=== PATIENT | male | born 1980 | race Caucasian/White ===

== ENCOUNTER 2016-04-20 10:13 | Emergency (ER) | payer SELFPAY ==
[~2016-04-20] VITALS: Ht 177.8 cm; Wt 97.5 kg
[~2016-04-20 10:13] MED LIST: CLIN-44 PO; CLIN300C86 PO; CYCL10TA2 PO; GENT5DRO3 EACHEYE; NAPR500T3 PO; TRAM50TA PO
[2016-04-20 10:15] VITALS: BP 140/90
--- NOTE | 2016-04-20 10:39 | ED.ADGEN ---
Past History Past Medical History: Other Past Surgical History: Tonsillectomy, Other Smoking: Non-smoker Alcohol Use: Rarely Drug Use: Marijuana Adult General HPI HPI Patient is a 35 y/o male c/o blood in urine this morning. Denies any h/o similar episodes. Denies any trauma, pain, or recent illness. Denies cp, dyspnea , dizziness, lightheadedness. Review of Systems Review of Systems Constitutional: Denies fever or chills [] Eyes: Denies change in visual acuity, redness, or eye pain [] HENT: Denies nasal congestion or sore throat [] Respiratory: Denies cough or shortness of breath [] Cardiovascular: No additional information not addressed in HPI [] GI: Denies abdominal pain, nausea, vomiting, bloody stools or diarrhea [] : Denies dysuria or hematuria [] Musculoskeletal: Denies back pain or joint pain [] Integument: Denies rash or skin lesions [] Neurologic: Denies headache, focal weakness or sensory changes [] Endocrine: Denies polyuria or polydipsia [] Current Medications Current Medications Current Medications Medications (Trade) Dose Ordered Sig/Mounika Start Time Stop Time Status Last Admin Dose Admin Iohexol (Omnipaque 300 Mg/ml) 75 ml 1X ONCE 04/20/16 12:00 04/20/16 12:02 DC 04/20/16 11:56 75 ML Allergies Allergies Allergies Coded Allergies Type Severity Reaction Last Updated Verified Penicillins Allergy Intermediate Nausea 09/01/14 Yes Physical Exam Physical Exam Constitutional: Well developed, well nourished, no acute distress, non-toxic appearance. [] HENT: Normocephalic, atraumatic, bilateral external ears normal, oropharynx moist, no oral exudates, nose normal. [] Eyes: PERRLA, EOMI, conjunctiva normal, no discharge. [] Neck: Normal range of motion, no tenderness, supple, no stridor. [] Cardiovascular:Heart rate regular rhythm, no murmur [] Lungs & Thorax: Bilateral breath sounds clear to auscultation [] Abdomen: Bowel sounds normal, soft, no tenderness, no masses, no pulsatile masses. [] Skin: Warm, dry, no erythema, no rash. [] Back: No tenderness, no CVA tenderness. [] Extremities: No tenderness, no cyanosis, no clubbing, ROM intact, no edema. [] Neurologic: Alert and oriented X 3, normal motor function, normal sensory function, no focal deficits noted. [] Psychologic: Affect normal, judgement normal, mood normal. [] Current Patient Data Vital Signs Vital Signs Date Time Temp Pulse Resp B/P Pulse Ox O2 Delivery O2 Flow Rate FiO2 04/20/16 10:15 97.4 90 18 96 Room Air Lab Results Laboratory Tests Test 04/20/16 11:00 04/20/16 11:39 Urine Collection Type Unknown Urine Color Red Urine Clarity Bloody Urine pH 5.5 Urine Specific [place] >=1.030 Urine Protein 100 mg/dl (NEG-TRACE) Urine Glucose (UA) Negmg/dL (NEG) Urine Ketones (Stick) Negmg/dL (NEG) Urine Blood Large (NEG) Urine Nitrite Neg (NEG) Urine Bilirubin Neg (NEG) Urine Urobilinogen Dipstick 0.2mg/dL (0.2 mg/dL) Urine Leukocyte Esterase Neg (NEG) Urine RBC Tntc/HPF (0-2) Urine WBC Rare/HPF (0-4) Urine Squamous Epithelial Cells Occ/LPF Urine Bacteria 0/HPF (0-FEW) White Blood Count 7.8x10^3/uL (4.0-11.0) Red Blood Count 4.95x10^6/uL (4.30-5.70) Hemoglobin 15.4g/dL (13.0-17.5) Hematocrit 45.6% (39.0-53.0) Mean Corpuscular Volume 92fL (79-100) Mean Corpuscular Hemoglobin 31pg (25-35) Mean Corpuscular Hemoglobin Concent 34g/dL (31-37) Red Cell Distribution Width 13.1% (11.5-14.5) Platelet Count 277x10^3/uL (140-400) Neutrophils (%) (Auto) 58% (31-73) Lymphocytes (%) (Auto) 30% (24-48) Monocytes (%) (Auto) 7% (0-9) Eosinophils (%) (Auto) 4% (0-3) H Basophils (%) (Auto) 1% (0-3) Neutrophils # (Auto) 4.5x10^3uL (1.8-7.7) Lymphocytes # (Auto) 2.3x10^3/uL (1.0-4.8) Monocytes # (Auto) 0.6x10^3/uL (0.0-1.1) Eosinophils # (Auto) 0.3x10^3/uL (0.0-0.7) Basophils # (Auto) 0.1x10^3/uL (0.0-0.2) Prothrombin Time 9.9SEC (9.4-11.4) Prothrombin Time INR 1.0 (0.9-1.1) PTT 27SEC (23-33) Sodium Level 136mmol/L (136-145) Potassium Level 4.0mmol/L (3.5-5.1) Chloride Level 102mmol/L (98-107) Carbon Dioxide Level 28mmol/L (21-32) Anion Gap 6 (6-14) Blood Urea Nitrogen 14mg/dL (8-26) Creatinine 1.0mg/dL (0.7-1.3) Estimated GFR (Cockcroft-Gault) 84.5 Glucose Level 98mg/dL (70-99) Calcium Level 8.7mg/dL (8.5-10.1) Aspartate Amino Transferase (AST) 17U/L (15-37) Alanine Aminotransferase (ALT) 46U/L (16-63) Alkaline Phosphatase 95U/L (46-116) EKG EKG [] Radiology/Procedures Radiology/Procedures [] Course & Med Decision Making Course & Med Decision Making Pertinent Labs and Imaging studies reviewed. (See chart for details) Initially, the patient noted he had hematuria and his urinalysis showed blood certainly but no signs of infection. I went to discharge the patient and he revealed that he has she had blood down the entire length of his leg. I once again clarified that he is having only bleeding when he urinates. He of reaffirmed this but stated that the bleeding ran down his leg this time. Further workup revealed no objective abnormalities. The patient appear to be in no distress other than worried about getting a work note. We reviewed the most common causes of hematuria including infection, kidney stone, bladder cancer versus other neoplasms or kidney abnormalities. Patient was urged to follow-up with a urologist and web specialist as soon as possible. He is return emergency department sooner if he develops any new or worsening symptoms. I have no clear explanation for his hematuria and wonder somewhat given the amount of gross blood in his urine and on his leg at this was not possibly factitious. Nevertheless, the patient was hemodynamically stable with a hemoglobin of greater than 15 here and in no pain or distress at the time of discharge. [] Final Impression Final Impression Hematuria [] Problems: Dragon Disclaimer Dragon Disclaimer This electronic medical record was generated, in whole or in part, using a voice recognition dictation system. LIDA RASHID MD Apr 20, 2016 10:39
[2016-04-20 11:23] LABS: CLARITY,URINE BLOODY; COLOR,URINE RED
[2016-04-20 11:24] LABS: BACTERIA,URINE 0 /HPF (0-FEW); BILIRUBIN,URINE NEG (NEG); GLUCOSE,URINE NEG (NEG); NITRITE,URINE NEG (NEG); RBC,URINE TNTC /HPF (0-2); SQUAMOUS EPITHELIAL CELL,UR OCC /LPF; UROBILINOGEN,URINE 0.2 mg/dL (0.2 mg/dL); WBC,URINE RARE /HPF (0-4)
[2016-04-20 11:56] LABS: BASO # 0.1 x10^3/uL (0.0-0.2); BASO % 1 % (0-3); EOS # 0.3 x10^3/uL (0.0-0.7); EOS % 4 % (0-3); HEMATOCRIT 45.6 % (39.0-53.0); HEMOGLOBIN 15.4 g/dL (13.0-17.5); LYMPH # 2.3 x10^3/uL (1.0-4.8); LYMPH % 30 % (24-48); MEAN CORPUSCULAR HEMOGLOBIN 31 pg (25-35); MEAN CORPUSCULAR HGB CONC 34 g/dL (31-37); MEAN CORPUSCULAR VOLUME 92 fL (79-100); MONO # 0.6 x10^3/uL (0.0-1.1); MONO % 7 % (0-9); NEUT # 4.5 x10^3uL (1.8-7.7); NEUT % 58 % (31-73); PLATELET COUNT 277 x10^3/uL (140-400); RED BLOOD COUNT 4.95 x10^6/uL (4.30-5.70); RED CELL DISTRIBUTION WIDTH 13.1 % (11.5-14.5); WHITE BLOOD COUNT 7.8 x10^3/uL (4.0-11.0)
[2016-04-20] MEDS ORDERED: IOHEXOL 300 MG/ML 75 ML VIAL. IV ONE (12:00)
[2016-04-20 12:12] LABS: CALCIUM 8.7 mg/dL (8.5-10.1); GFR 84.5
--- NOTE | 2016-04-20 12:14 | RAD ---
CT of the abdomen and pelvis with contrast, 04/20/2016: History: Gross hematuria with painful urination Multidetector CT imaging was performed following an IV bolus injection of iodinated contrast material. No oral contrast material was administered for this exam. The liver is unremarkable. No gallbladder abnormality is seen. The pancreas shows no abnormality. The spleen is of normal size. The kidneys show no evidence of obstruction. Single tiny subcentimeter low density lesions in both kidneys are too small to definitively characterize but are probably cysts. No adrenal abnormality is detected. The abdominal aorta is unremarkable. No periaortic, iliac or inguinal adenopathy is seen. The urinary bladder is unremarkable. The prostate gland is not enlarged. A small prostatic calcification is present. The bowel loops are not dilated. Small celiac and portacaval lymph nodes are identified. No definite pathologically enlarged mesenteric nodes are seen. No free fluid or free air is evident in the abdomen or pelvis. IMPRESSION: 1. Probable small bilateral renal cysts. 2. No acute abdominal or pelvic abnormality is detected. PQRS Compliance Statement: One or more of the following individualized dose reduction techniques were utilized for this examination: 1. Automated exposure control 2. Adjustment of the mA and/or kV according to patient size 3. Use of iterative reconstruction technique
[2016-04-20] MEDS ORDERED: CIPR500T94 PO (12:39)
== END 2016-04-20 12:50 | disposition home or self-care (01) ==
LOC: ER 10:13
DX: R31.9 Hematuria, unspecified (principal); F12.10 Cannabis abuse, uncomplicated; Z88.0 Allergy status to penicillin
CPT/HCPCS: 36415; 74177; 80048; 81001; 84075; 84450; 84460; 85027; 85610; 85730; 99285; Q9967

== ENCOUNTER 2016-11-28 10:58 | Emergency (ER) | payer OTHER ==
[~2016-11-28] VITALS: Ht 177.8 cm; Wt 113.4 kg
[~2016-11-28 10:58] MED LIST changes: +CIPR500T94 PO; -CLIN-44 PO; +CLIN150C14 PO; +CLIN300C8 PO; -CLIN300C86 PO; +CYCL-331 PO; -CYCL10TA2 PO; -NAPR500T3 PO; +NAPR500T4 PO
[2016-11-28 11:32] VITALS: BP 154/93
[2016-11-28] MEDS ORDERED: NAPROXEN 500 MG TABLET PO ONE (11:45)
[2016-11-28] MEDS ORDERED: DIPHTH,PERTUSS(ACELL),TET TOX 0.5 ML DISP.SYRIN. VAX IM ONE (11:45)
[2016-11-28] MEDS ORDERED: LIDOCAINE WITH 8.4% SOD BICARB 3 ML DISP.SYRIN. IJ ONE (11:45)
--- NOTE | 2016-11-28 12:04 | ED.ADGEN ---
Past History Past Medical History: No Pertinent History Past Surgical History: Tonsillectomy, Other Smoking: Non-smoker Alcohol Use: None Drug Use: Marijuana Adult General HPI HPI Patient is a [36-year-old man, with no significant past medical history, who presents to the emergency department with a complaint of a laceration to his right index finger. Patient states that he was placing siting in a cooler door, describes a thin piece of aluminum, when it slipped and he lacerated the lateral aspect of his finger between the distal and proximal phalanx. Patient has full range of motion, denies any possibility of foreign body insertion, states this is occurred just before he arrived in the emergency department. He is uncertain his last tetanus vaccination. He denies any other injuries, or complaints. Patient is left-handed. Review of Systems Review of Systems Constitutional: Denies fever or chills [] Eyes: Denies change in visual acuity, redness, or eye pain [] HENT: Denies nasal congestion or sore throat [] Respiratory: Denies cough or shortness of breath [] Cardiovascular: No additional information not addressed in HPI [] GI: Denies abdominal pain, nausea, vomiting, bloody stools or diarrhea [] : Denies dysuria or hematuria [] Musculoskeletal: Denies back pain, pain in the distal aspect of the right phalanx. Integument: Denies rash or skin lesions [] Neurologic: Denies headache, focal weakness or sensory changes [] Endocrine: Denies polyuria or polydipsia [] Current Medications Current Medications Current Medications Medications (Trade) Dose Ordered Sig/Mounika Start Time Stop Time Status Last Admin Dose Admin Cephalexin HCl (Keflex) 500 mg 1X ONCE 11/28/16 12:15 11/28/16 12:16 DC Diphtheria/ Tetanus/Acell Pertussis (Boostrix) 0.5 ml ONCE ONCE 11/28/16 11:45 11/28/16 11:46 DC 11/28/16 12:02 0.5 ML Lidocaine/Sodium Bicarbonate (Buffered Lidocaine 1%) 3 ml 1X ONCE 11/28/16 11:45 11/28/16 11:46 DC 11/28/16 12:03 3 ML Naproxen (Naprosyn) 500 mg 1X ONCE 11/28/16 11:45 11/28/16 11:46 DC 10/22/17 12:03 500 MG Allergies Allergies Allergies Coded Allergies Type Severity Reaction Last Updated Verified Penicillins Allergy Intermediate Nausea 09/01/14 Yes Physical Exam Physical Exam Constitutional: Well developed, well nourished, no acute distress, non-toxic appearance. [] HENT: Normocephalic, atraumatic, bilateral external ears normal, oropharynx moist, no oral exudates, nose normal. [] Eyes: PERRLA, EOMI, conjunctiva normal, no discharge. [] Cardiovascular:Heart rate regular rhythm, no murmur, S1, S2, rubs or gallops. [] Lungs & Thorax: Bilateral breath sounds clear to auscultation, no wheezing, rhonchi, rales. [] Skin: Warm, dry, no erythema, no rash. [] Back: No tenderness, no CVA tenderness. [] Extremities: Patient with a 1/2 cm laceration that is U-shaped in the center of the middle phalanx, of the fifth digit of the right hand, slightly gaping, superficial, patient with full range of motion a card motions intact. No cyanosis, no clubbing, ROM intact, no edema. [] Neurologic: Alert and oriented X 3, normal motor function, normal sensory function, no focal deficits noted. [] Psychologic: Affect normal, judgement normal, mood normal. [] Current Patient Data Vital Signs Vital Signs Date Time Temp Pulse Resp B/P (MAP) Pulse Ox O2 Delivery O2 Flow Rate FiO2 11/28/16 11:32 98.1 97 18 94 Room Air EKG EKG Not indicated.[] Radiology/Procedures Radiology/Procedures Not indicated.[] Course & Med Decision Making Course & Med Decision Making Pertinent Labs and Imaging studies reviewed. (See chart for details) Patient denies any possibility of foreign body, declines x-ray. Wound is superficial in nature. Patient works at a fast food restaurant, states that he was replacing a paneling on the cooler door, when the metal slid and sliced into his finger. Patient's tetanus status updated in the emergency department. Patient received naproxen, area was initially soaked, and then irrigated with sterile saline. Wound is superficial, patient has full range of motion with current motions intact, no tendon involvement. Total of 5 simple interrupted sutures applied using 5-0 Ethilon after placement of a distal finger block with good effect. Steri-Strips are applied, patient instructed to use Keflex twice daily for the next 5 days for infection, due to the fact this was a work place injury in a kitchen, naproxen, acetaminophen, instructed on the packaging for discomfort. Patient's employer is aware of his injury today, patient was given instructions regarding abstaining from use a finger, and a foam splint was applied for extra support. Patient is a manager house, states he will be able to function at his job without having to use his right hand, he is left-handed as stated, will follow up with his employer's work related injury protocol. We did discuss concerning symptoms that would prompt return to the emergency department , patient to follow-up with his primary care provider return to the ED in 7 days for suture removal, to return any time if any new or concerning symptoms develop. Patient discharged home in stable condition with prescriptions, plan and precautions as above. Final Impression Final Impression [] Problems: Dragon Disclaimer Dragon Disclaimer This electronic medical record was generated, in whole or in part, using a voice recognition dictation system. Departure: Impression: Primary Impression: Finger laceration Disposition: 01 HOME, SELF-CARE Condition: IMPROVED Scripts Cephalexin (KEFLEX) 500 Mg Capsule 1 CAP PO BID, #10 CAP Prov: JAVIER TRISTAN DO 11/28/16 Laceration Repair Lac Repair Indication: 2 and half centimeter superficial laceration to the medial aspect of the fifth phalanx of the right hand. Procedure: The patient was placed in the appropriate position and was administered, using a total of 3 mL of buffered 1% lidocaine for a nerve block with good effect]. The area was then irrigated after being soaked in normal saline. The laceration was approximated, total of 5 simple sutures using 5-0 Ethilon were applied with good approximation and hemostasis. The wound area was then dressed with [Steri-Strips and sterile gauze, a foam splint was then applied for extra stability.. Total repaired wound length: [2 and half centimeters]. Other Items: [None] The patient tolerated the procedure well]. Complications: [None JAVIER TRISTAN DO Nov 28, 2016 12:04
[2016-11-28] MEDS ORDERED: CEPHALEXIN 250 MG CAPSULE PO ONE (12:15)
[2016-11-28] MEDS ORDERED: CEPH-264 PO (13:28)
== END 2016-11-28 13:39 | disposition home or self-care (01) ==
LOC: ER 10:58
DX: S61.210A Laceration without foreign body of right index finger without damage to nail, initial encounter (principal); F12.10 Cannabis abuse, uncomplicated; Z88.0 Allergy status to penicillin; W26.8XXA Contact with other sharp object(s), not elsewhere classified, initial encounter; Y93.89 Activity, other specified; Y92.89 Other specified places as the place of occurrence of the external cause; Y99.8 Other external cause status
CPT/HCPCS: 12001; 90471; 90715; 99284; 99283-25

== ENCOUNTER 2016-12-16 19:32 | Emergency (ER) | payer OTHER ==
[~2016-12-16] VITALS: Ht 177.8 cm; Wt 113.4 kg
[~2016-12-16 19:32] MED LIST changes: +CEPH-264 PO
[2016-12-16 19:42] VITALS: BP 148/89
[2016-12-16] MEDS ORDERED: CEPH-264 PO (20:09)
[2016-12-16] MEDS ORDERED: NAPR-677 PO (20:09)
--- NOTE | 2016-12-16 20:10 | PHYS DOC ---
Past History Past Medical History: No Pertinent History Additional Past Medical Histor: multiple dental complaints Past Surgical History: Tonsillectomy, Other Smoking: Cigarettes Alcohol Use: None Drug Use: Marijuana Adult General Chief Complaint Chief Complaint: DENTAL PROBLEM HPI HPI Patient is a 36 year old male who presents with left lower jaw pain. He states it started today. No fever. No difficulty swallowing. No drooling. No sore throat or ear ache. He has had multiple prior complaints for left lower dental and jaw pain. He does not see a dentist in quite some time. He does continue to smoke tobacco. KTRACS reviewed; no recent activity. Review of Systems Review of Systems Constitutional: Denies fever or chills HENT: Denies nasal congestion or sore throat; left lower jaw pain. Respiratory: Denies cough or shortness of breath All other systems were reviewed and found to be within normal limits, except as documented in this note. Allergies Allergies Allergies Coded Allergies Type Severity Reaction Last Updated Verified Penicillins Allergy Intermediate Nausea 09/01/14 Yes Physical Exam Physical Exam Constitutional: Well developed, well nourished, no acute distress, non-toxic appearance. HENT: Normocephalic, atraumatic, bilateral external ears normal, oropharynx moist, no oral exudates, nose normal. Poor dentition. Pain on palpation of lower dentition Eyes: PERRLA, EOMI, conjunctiva normal, no discharge. Neck: Normal range of motion, no tenderness, supple, no stridor. No lymphadenopathy Cardiovascular:Heart rate regular rhythm, no murmur Lungs & Thorax: Bilateral breath sounds clear to auscultation Neurologic: Alert and oriented X 3, normal motor function, normal sensory function, no focal deficits noted. Current Patient Data Vital Signs Vital Signs Date Time Temp Pulse Resp B/P (MAP) Pulse Ox O2 Delivery O2 Flow Rate FiO2 12/16/16 19:42 99.3 104 20 95 Room Air Course & Med Decision Making Course & Med Decision Making Reviewed prior records and KTRACS. The discomfort is in his lower teeth. We'll place him on antibiotic. Informed that if this persists he must be seen by a dentist. I informed him that I cannot diagnose no treat dental conditions as I am not a dentist. I am treating presumptively based on his clinical findings. No evidence of parotiditis or mumps. Rx; naprosyn and keflex I have spoken with the patient and/or caregivers. I have explained the patient' s condition, diagnosis and treatment plan based on the information available to me at this time. I have answered the patient's and/or caregiver's questions and addressed any concerns. The patient and/or caregivers have as good an understanding of the patient's diagnosis, condition and treatment plan as can be expected at this point. The patient's condition is stable and appropriate for discharge from the emergency department. The patient will pursue further outpatient evaluation with the primary care physician or other designated or consulting physician as outlined in the discharge instructions. The patient and/or caregivers are agreeable to this plan of care and follow-up instructions have been explained in detail. The patient and/or caregivers have received these instructions in written format and have expressed an understanding of the discharge instructions. The patient and/or caregivers are aware that any significant change in condition or worsening of symptoms should prompt an immediate return to this or the closest emergency department or a call to 911. Dragon Disclaimer Dragon Disclaimer This electronic medical record was generated, in whole or in part, using a voice recognition dictation system. Departure Departure: Impression: Primary Impression: Pain, dental Disposition: HOME, SELF-CARE Condition: STABLE Referrals: PCP,NO (PCP) Patient Instructions: Dental Caries Additional Instructions: YOU MUST BE SEEN BY A DENTIST IF THE PAIN PERSISTS. Scripts Cephalexin (KEFLEX) 500 Mg Capsule 1 CAP PO TID, #21 CAP Prov: LOLITA LITTLE MD 12/16/16 Naproxen Sodium (NAPROXEN SODIUM) 550 Mg Tablet 1 TAB PO BID, #30 TAB Prov: LOLITA LITTLE MD 12/16/16 LOLITA LITTLE MD Dec 16, 2016 20:09
== END 2016-12-16 20:13 | disposition home or self-care (01) ==
LOC: ER 19:32
DX: K08.89 Other specified disorders of teeth and supporting structures (principal); R68.84 Jaw pain; F17.210 Nicotine dependence, cigarettes, uncomplicated; F12.10 Cannabis abuse, uncomplicated; Z88.0 Allergy status to penicillin
CPT/HCPCS: 99283

== ENCOUNTER 2018-03-14 19:31 | Emergency (ER) | payer OTHER ==
[~2018-03-14] VITALS: Ht 177.8 cm; Wt 113.4 kg
[~2018-03-14 19:31] MED LIST changes: +NAPR-514 PO; +NAPR-677 PO; -NAPR500T4 PO
[2018-03-14 19:35] VITALS: BP 139/90
--- NOTE | 2018-03-14 19:49 | ED.ADGEN ---
Past History Past Medical History: No Pertinent History Additional Past Medical Histor: multiple dental complaints Past Surgical History: Tonsillectomy, Other Smoking: Cigarettes Alcohol Use: None Drug Use: Marijuana Adult General Chief Complaint Chief Complaint ''.. I got a bump in top my mouth... it started yesterday... when I swallow my tongue hits... it and it hurts..." HPI HPI Patient is a 27 year old male who presents with a lesion in upper right hard palate which developed yesterday or became tender yesterday. Patient has no pharyngeal erythema. No adenopathy. No trismus. There is no pointing abscess. Patient does have multiple areas of dental decay and gingivitis. Patient denies any history immunosuppression. Patient denies any travel or ill contacts. Patient denies any trauma. Patient does smoke. Patient in the past has used methamphetamine. Review of Systems Review of Systems Constitutional: Denies fever or chills [] Eyes: Denies change in visual acuity, redness, or eye pain [] HENT: Denies nasal congestion or sore throat []complaints of soft tissue lesion right upper hard palate and dental decay Respiratory: Denies cough or shortness of breath [] Cardiovascular: No additional information not addressed in HPI [] GI: Denies abdominal pain, nausea, vomiting, bloody stools or diarrhea [] : Denies dysuria or hematuria [] Musculoskeletal: Denies back pain or joint pain [] Integument: Denies rash or skin lesions [] Neurologic: Denies headache, focal weakness or sensory changes [] Endocrine: Denies polyuria or polydipsia [] All other systems were reviewed and found to be within normal limits, except as documented in this note. Family History Family History Noncontributory Current Medications Current Medications Current Medications Medications (Trade) Dose Ordered Sig/Mounika Start Time Stop Time Status Last Admin Dose Admin Cephalexin HCl (Keflex) 500 mg 1X ONCE 03/14/18 20:15 03/14/18 20:16 DC 03/14/18 20:20 500 MG See nursing for home meds Allergies Allergies Allergies Coded Allergies Type Severity Reaction Last Updated Verified Penicillins Allergy Intermediate Nausea 09/01/14 Yes Physical Exam Physical Exam Constitutional: Mild distress, non-toxic appearance. [] HENT: Normocephalic, atraumatic, bilateral external ears normal, oropharynx moist, no oral exudates, nose normal. Multiple areas of gingivitis. Multiple areas of dental decay. Small 1 cm soft tissue lesion right upper hard palate. No pointing abscess. No appreciable adenopathy. Eyes: PERRLA, EOMI, conjunctiva normal, no discharge. [] Neck: Normal range of motion, no tenderness, supple, no stridor. [] Cardiovascular:Heart rate regular rhythm, no murmur [] Lungs & Thorax: Bilateral breath sounds equal at apex with scattered wheezes on auscultation [] Abdomen: Bowel sounds normal, soft, no tenderness, no masses, no pulsatile masses. [] Skin: Warm, dry, no erythema, no rash. [] Back: No tenderness, no CVA tenderness. [] Extremities: No tenderness, no cyanosis, no clubbing, ROM intact, no edema. [] Neurologic: Alert and oriented X 3, normal motor function, normal sensory function, no focal deficits noted. [] Psychologic: Affect anxious, judgement normal, mood normal. [] Current Patient Data Vital Signs Vital Signs Date Time Temp Pulse Resp B/P (MAP) Pulse Ox O2 Delivery O2 Flow Rate FiO2 03/14/18 19:35 98.1 92 20 96 Room Air EKG EKG [] Radiology/Procedures Radiology/Procedures [] Course & Med Decision Making Course & Med Decision Making Pertinent Labs and Imaging studies reviewed. (See chart for details Principal mouth frequently with Listerine. Take Keflex 500 mg 3 times a day. Tylenol and ibuprofen for pain. Must follow-up with Dentist. Antibiotic in meds will not fix underlying oral and dental problems must see a dentist. Must follow-up. Stop smoking. Follow-up primary care. [] Final Impression Final Impression 1. 1 cm x 1 cm soft tissue lesion anterior right upper plate- hard palate 2. Tobacco use[] 3. Multiple areas of dental decay 4. History of previous methamphetamine use Dragon Disclaimer Dragon Disclaimer This electronic medical record was generated, in whole or in part, using a voice recognition dictation system. Dragon Disclaimer This chart was dictated in whole or in part using Voice Recognition software in a busy, high-work load, and often noisy Emergency Department environment. It may contain unintended and wholly unrecognized errors or omissions. Discharge Summary Visit Information Final Diagnosis Problems Medical Problems: (1) Oral mucosal lesion Status: Acute Brief Hospital Course Allergies Allergies Coded Allergies Type Severity Reaction Last Updated Verified Penicillins Allergy Intermediate Nausea 09/01/14 Yes Vital Signs Vital Signs Date Time Temp Pulse Resp B/P (MAP) Pulse Ox O2 Delivery O2 Flow Rate FiO2 03/14/18 19:35 98.1 92 20 96 Room Air Brief Hospital Course Mr. Seay is a 37 old male who presented with oral lesion and multiple areas of dental decay. Discharge Information Condition at Discharge: Improved, Stable Disposition/Orders: D/C to Home Dischare Medications Current Medications Cephalexin HCl (Keflex) 500 mg 1X ONCE PO Last administered on 03/14/18at 20:20 ; Admin Dose 500 MG; Start 03/14/18 at 20:15; Stop 03/14/18 at 20:16; Status DC Active Scripts Active Keflex (Cephalexin) 500 Mg Capsule 500 Mg PO TID 10 Days Keflex (Cephalexin) 500 Mg Capsule 1 Cap PO TID Naproxen Sodium 550 Mg Tablet 1 Tab PO BID Keflex (Cephalexin) 500 Mg Capsule 1 Cap PO BID Cipro (Ciprofloxacin Hcl) 500 Mg Tablet 1 Tab PO BID Naproxen 500 Mg Tablet 1 Tab PO Q12HR PRN Cyclobenzaprine Hcl 10 Mg Tablet 1 Tab PO Q8HRS PRN Reported No Known Medications Prior To Admisstion (Info) Each 1 Each JOAQUIM STUBBS MD Mar 14, 2018 19:49
[2018-03-14] MEDS ORDERED: CEPH-264 PO (20:02)
[2018-03-14] MEDS ORDERED: CEPHALEXIN 250 MG CAPSULE PO ONE (20:15)
== END 2018-03-14 20:20 | disposition home or self-care (01) ==
LOC: ER 19:31
DX: K13.79 Other lesions of oral mucosa (principal); K02.9 Dental caries, unspecified; K05.10 Chronic gingivitis, plaque induced; F17.210 Nicotine dependence, cigarettes, uncomplicated; Z88.0 Allergy status to penicillin
CPT/HCPCS: 99283

== ENCOUNTER 2019-02-24 10:59 | Emergency (ER) | payer OTHER ==
[~2019-02-24] VITALS: Ht 177.8 cm; Wt 122.0 kg
[2019-02-24] MEDS ORDERED: ACETAMINOPHEN 500 MG TABLET PO ONE (11:15)
[2019-02-24 11:55] VITALS: BP 109/75
--- NOTE | 2019-02-24 11:55 | RAD ---
Two-view chest dated 02/24/2019. Comparison made to 08/24/2010. CLINICAL INDICATION: Cough and pain. FINDINGS: PA and lateral views obtained. Heart and mediastinal contours are stable. Lungs are clear. No consolidation or pleural effusion. No pneumothorax. No apparent bony abnormality. IMPRESSION: No acute findings. Electronically signed by: Crispin Sheth MD (02/24/2019 11:52 AM) [facility]
--- NOTE | 2019-02-24 12:49 | PHYS DOC ---
Past History Past Medical History: No Pertinent History Additional Past Medical Histor: multiple dental complaints Past Surgical History: Tonsillectomy, Other Additional Past Surgical Histo: EUSTATION TUBES Smoking: Cigarettes Additional Smoking Information: PACK/DAY Alcohol Use: None Drug Use: None Adult General Chief Complaint Chief Complaint: RIB PAIN HPI HPI Patient is a 38-year-old male who slipped on a child's toy and landed on his left rib few hours ago pain is moderate slowly worsening with time he's had a cough for couple weeks as well Review of Systems Review of Systems Negative for fever negative for abdominal pain ote. Current Medications Current Medications Current Medications Medications (Trade) Dose Ordered Sig/Mounika Start Time Stop Time Status Last Admin Dose Admin Acetaminophen (Tylenol) 1,000 mg 1X ONCE 02/24/19 11:15 02/24/19 11:16 DC 02/24/19 11:34 1,000 MG Allergies Allergies Allergies Coded Allergies Type Severity Reaction Last Updated Verified No Known Drug Allergies 02/24/19 No Physical Exam Physical Exam Constitutional: Well developed, well nourished, no acute distress, non-toxic appearance. [] HENT: Normocephalic, atraumatic, bilateral external ears normal, oropharynx moist, no oral exudates, nose normal. [] Eyes: PERRLA, EOMI, conjunctiva normal, no discharge. [] Neck: Normal range of motion, no tenderness, supple, no stridor. [] Cardiovascular:Heart rate regular rhythm, no murmur [] Lungs & Thorax: Bilateral breath sounds clear to auscultation [] Abdomen: Bowel sounds normal, soft, no tenderness, no masses, no pulsatile masses. [] Skin: Warm, dry, no erythema, no rash. [] Back: No tenderness, no CVA tenderness. [] Extremities: No tenderness, no cyanosis, no clubbing, ROM intact, no edema. [] Neurologic: Alert and oriented X 3, normal motor function, normal sensory function, no focal deficits noted. [] Psychologic: Affect normal, judgement normal, mood normal. [] Current Patient Data Vital Signs Vital Signs Date Time Temp Pulse Resp B/P (MAP) Pulse Ox O2 Delivery O2 Flow Rate FiO2 02/24/19 11:55 89 20 109/75 (86) 97 Room Air 02/24/19 11:10 97.9 EKG EKG [] Radiology/Procedures Radiology/Procedures [] Impressions: FINDINGS: PA and lateral views obtained. Heart and mediastinal contours are stable. Lungs are clear. No consolidation or pleural effusion. No pneumothorax. No apparent bony abnormality. IMPRESSION: No acute findings. Electronically signed by: Crispin Sheth MD (02/24/2019 11:52 AM) [facility] DICTATED AND SIGNED BY: CRISPIN SHETH MD DATE: 02/24/19 1151 CC: RADHA TENA MD; PCP,NO ~ Course & Med Decision Making Course & Med Decision Making Pertinent Labs and Imaging studies reviewed. (See chart for details) []X-ray negative vitals normal patient reassured Jigna Disclaimer Dragon Disclaimer This electronic medical record was generated, in whole or in part, using a voice recognition dictation system. Departure Departure: Impression: Primary Impression: Chest wall pain Disposition: HOME, SELF-CARE Condition: STABLE Patient Instructions: Chest Wall Pain, B[place]-Jaor RADHA TENA MD Feb 24, 2019 12:49
== END 2019-02-24 11:59 | disposition home or self-care (01) ==
LOC: ER 10:59
DX: R07.81 Pleurodynia (principal); G89.11 Acute pain due to trauma; F17.210 Nicotine dependence, cigarettes, uncomplicated; W18.09XA Striking against other object with subsequent fall, initial encounter; Y93.89 Activity, other specified; Y92.89 Other specified places as the place of occurrence of the external cause; Y99.8 Other external cause status
CPT/HCPCS: 71046; 99284

== ENCOUNTER 2021-04-07 10:45 | Emergency (ER) | payer OTHER ==
[~2021-04-07] VITALS: Ht 177.8 cm; Wt 130.2 kg
[~2021-04-07 10:45] MED LIST changes: +CLIN-95 PO; -CLIN150C14 PO; +CLIN150C16 PO; -CLIN300C8 PO; -CYCL-331 PO; +CYCL10TA19 PO
--- NOTE | 2021-04-07 10:52 | PHYS DOC ---
Past History Past Medical History: No Pertinent History Additional Past Medical Histor: multiple dental complaints Past Surgical History: Tonsillectomy, Other Additional Past Surgical Histo: EUSTATION TUBES Smoking: Cigarettes Alcohol Use: None Drug Use: None Adult General HPI HPI Patient is a 40 year old male who presents with laceration. 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 He excellently lacerated the right index finger. Complains of laceration only. No loss of motor function. Review of Systems Review of Systems Constitutional: Denies fever or chills Eyes: Denies change in visual acuity, redness, or eye pain HENT: Denies nasal congestion or sore throat Respiratory: Denies cough or shortness of breath Cardiovascular: No additional information not addressed in HPI GI: Denies abdominal pain, nausea, vomiting, bloody stools or diarrhea Musculoskeletal: Denies back pain or joint pain Integument: as documented in HPI Neurologic: Denies All other systems were reviewed and found to be within normal limits, except as documented in this note. Allergies Allergies Allergies Coded Allergies Type Severity Reaction Last Updated Verified No Known Drug Allergies 02/24/19 No Physical Exam Physical Exam Constitutional: Well developed, well nourished, no acute distress, non-toxic appearance HENT: bilateral external ears normal, oropharynx moist, no oral exudates, nose normal. Eyes: PERRLA, EOMI, conjunctiva normal Neck: Normal range of motion Cardiovascular:Heart rate regular rhythm Lungs & Thorax: Bilateral breath sounds clear Abdomen: Bowel sounds normal Skin: 1 cm laceration present over the radial aspect of the mid right index finger. Extremities: Flexion and extensor mechanisms intact about the affected finger. Distal capillary refill less than 2 seconds. Sensation light touch intact. Neurologic: Alert and oriented X 3 EKG EKG [] Radiology/Procedures Radiology/Procedures Laceration repair: The right index finger is cleansed with Betadine and draped in the usual fashion. Local anesthesia was provided with 1 mL of 2% lidocaine which is injected intradermally around the wound. Following this, the wound is irrigated with normal saline. A total of 3 simple interrupted sutures were placed using 4-0 nylon. Wound edges are well approximated. Sterile dressing is applied. Patient tolerates well. Total length of sutured skin is 1 cm. Heart Score C/O Chest Pain: N/A Risk Factors: Risk Factors: DM, Current or recent (<one month) smoker, HTN, HLP, family history of CAD, obesity. Risk Scores: Risk Factors: DM, Current or recent (<one month) smoker, HTN, HLP, family history of CAD, obesity. Course & Med Decision Making Course & Med Decision Making Pertinent Labs and Imaging studies reviewed. (See chart for details) ED summary: Patient seen in the ER for minor injury/laceration to the right index finger. Sutures were placed without difficulty. Stable for discharge home. Wound care is discussed. He was recommended to come back in 8 to 10 days for suture removal. Dragon Disclaimer Dragon Disclaimer This electronic medical record was generated, in whole or in part, using a voice recognition dictation system. Departure Departure: Impression: Primary Impression: Laceration of finger Disposition: 01 HOME / SELF CARE / HOMELESS Condition: GOOD Referrals: PCPSU[facility] (PCP) Patient Instructions: Laceration Care, Adult BETTY CASTELLON DO Apr 07, 2021 10:51
[2021-04-07 10:53] VITALS: BP 126/92
[2021-04-07] MEDS ORDERED: LIDOCAINE 2% 20 ML VIAL. ONE (10:57)
[2021-04-07] MEDS ORDERED: LIDOCAINE 2% 20 ML VIAL. IJ ONE (11:00)
== END 2021-04-07 11:15 | disposition home or self-care (01) ==
LOC: ER 10:45
DX: S61.210A Laceration without foreign body of right index finger without damage to nail, initial encounter (principal); F17.210 Nicotine dependence, cigarettes, uncomplicated; W26.0XXA Contact with knife, initial encounter; Y93.89 Activity, other specified; Y92.89 Other specified places as the place of occurrence of the external cause; Y99.8 Other external cause status
CPT/HCPCS: 12001; 99282; J2001